=== PATIENT | male | born 1985 | race African-American/Black ===

== ENCOUNTER → 2021-05-31 | Outpatient (REF) | LOC: M LABSMTC 09:54 | PROVIDERS: ATTEND Pediatrics | DX: Z11.52 Encounter for screening for COVID-19 (principal); Z20.822 Contact with and (suspected) exposure to COVID-19 ==

== ENCOUNTER → 2023-08-12 | Outpatient (CLI) | payer BC | LOC: M WUC 12:53 | PROVIDERS: ATTEND Chiropractor | DX: M54.50 Low back pain, unspecified (principal); M25.551 Pain in right hip ==